=== PATIENT | female | born 1985 | race Hispanic/Latino ===

== ENCOUNTER 2024-09-27 13:48 | Emergency (ER) | payer OTHER, SELFPAY ==
[2024-09-27 13:49] VITALS: BP 176/102
--- NOTE | 2024-09-27 14:18 | ED.GENMED ---
History of Present Illness
General
Chief Complaint: Chest Problem
Source: patient
Time Seen by Provider: 09/27/24 14:07
History of Present Illness
History of Present Illness:
39yoF with no significant past medical history presenting for evaluation of chest pain. She initially started with pain underneath her left breast yesterday evening. Pain radiates to the back. She describes the pain as a dull ache which becomes
sharp with inspiration. She denies any trauma or cough. She thinks she may have pulled a muscle but decided to go to urgent care. She had an EKG and chest x-ray while at urgent care which she was told were normal. She was told to go to the ED to
rule out a pulmonary embolism. Patient is currently on oral contraceptives. She denies any recent travel. No calf pain or leg swelling.
Phy Exam
General Physical Exam
General Presentation: well appearing and no apparent distress
General age: appears stated age
General Skin: warm and dry
General Habitus: normal
General Mental: alert
ENT Exam
ENT Exam: normocephalic
Cardiovascular Exam
Cardiovascular Exam: regular rate/rhythm
Pulmonary Exam
Pulmonary Exam: lungs clear, no respiratory distress, chest non tender, no crackles and no wheezing
Gastrointestinal Exam
Gastrointestinal Exam: non tender, soft and non distended
Yancy Coma Scale
Eye Opening: Spontaneous
Verbal Response: Oriented
Motor Response: Obeys Commands
GCS Total Score: 15
Skin Exam
Skin Exam: normal color and warm/dry
Psychiatric Exam
Psychiatric Exam: normal mood/affect
Course
Orders/Labs/Results
Orders:
Orders
09/27/24 13:54
Electrocardiogram (*1) Urgent
Reason for Study: Chest Pain
EKG- Treatment ONCE
09/27/24 14:18
Test Result ONCE
09/27/24 14:31
Basic Metabolic Panel Urgent
Complete Blood Count/With Diff Urgent
D-Dimer Urgent
Troponin I Urgent
09/27/24 14:56
Test Result ONCE
09/27/24 15:05
HCG, Urine Qualitative Screen Urgent
Date Specimen was Collected: 09/27/24
Time Specimen was Collected: 14:56
Abnormal Lab Results
09/27/24
14:31
MCH 32.5 H pg
(27.0-31.0)
09/27/24 14:31
09/27/24 14:31
Vital Signs
Initial and Last Documented VS:
Initial Vital Signs
Temp Pulse Resp BP Pulse Ox
98.4 F 63 18 176/102 98
09/27/24 13:49 09/27/24 13:49 09/27/24 13:49 09/27/24 13:49 09/27/24 13:49
Last Documented Vital Signs
Temp Pulse Resp BP Pulse Ox
98.4 F 59 15 157/94 100
09/27/24 13:49 09/27/24 15:15 09/27/24 15:16 09/27/24 14:37 09/27/24 15:15
MDM/Problems Addressed
Differential Diagnosis Includes:
39yoF here with pleuritic L sided chest pain x 1 day. Radiates to back. Sent here by urgent care to r/o PE. Oxygen saturation 98% in triage and HR in the 60s. She is well appearing in no distress. Exam is reassuring. Lungs CTA and there is no
reproducible tenderness on exam. Differential diagnosis includes but is not limited to: Pneumonia, costochondritis, pleurisy, pneumothorax, PE
Initial ED plan: Check cardiac labs, D-dimer, and EKG. Patient arrives with a disc with her x-ray images from urgent care. Chest x-ray able to be removed which appears normal per my interpretation.
*EKG
Interpreted by ED Provider?: Yes
EKG Intrepretation Date: 09/27/24
Heart Rate: 59
Rate: bradycardiac
Rhythm: sinus
Yarnell: normal axis
Interval: normal interval
QRS Pattern: normal QRS
Ischemia: no ischemia
*Critical Care Note
Total Time (30-74mins, 75-104mins- exclusive of procedures): Not Applicable
Update Note
Update Note:
EKG shows sinus bradycardia without ischemic changes. Troponin within normal limits. D-dimer normal making PE very unlikely. Remainder of labs overall unremarkable. She is stable for discharge. Unclear etiology of symptoms. Consider
musculoskeletal versus pleurisy. Supportive care discussed. She was advised to follow-up with her PCP. ED return precautions discussed. She expressed understanding and is agreeable to plan. She was discharged in stable condition.
ED Attending Note
-
Portions of this chart may have been created with voice recognition software.� Occasional wrong word or��sound alike� substitutions may have occurred due to the inherent limitations of voice recognition software.
Discharge Plan
Departure
Patient Disposition: Home (Routine Discharge)
Date of Disposition: 09/27/24
Time of Disposition: 15:22
Patient with high blood pressure during this ER visit?: Yes
Discharge Problem:
Pleuritic chest pain
Instructions: Chest Pain PCP Follow Up
Referrals:
Regis Enciso MD [Family Provider] -
Activity Restrictions/Additional Instructions:
Apply heat to affected area. Take Tylenol and ibuprofen as needed.
Please follow-up with your family doctor. Return to the ER with any new or worsening symptoms.
Interventions
Interventions:
*Risk Screen - Suicide Last Done: 09/27/24 13:49
*General Assessment Last Done: 09/27/24 13:49
*Neglect/Abuse Screening Last Done: 09/27/24 13:49
ED- Fall Risk Assessment Last Done: 09/27/24 14:40
*ED COVID-19 Vaccine History Last Done: 09/27/24 14:40
*Nursing Disposition Last Done: 09/27/24 15:27
ED- Cardiac Assessment Last Done: 09/27/24 14:40
ED- Pulmonary Assessment Last Done: 09/27/24 14:40
Discharge Date and Time
Discharge Date/Time: 09/27/24 15:28
Print Language: WOLOF
[2024-09-27 14:37] VITALS: BP 157/94
[2024-09-27 14:38] LABS: % Basophils 0.7 % (0-2); % Eosinophils 1.6 % (0-6); % Immature Granulocytes 0.1 % (0-0.5); % Lymphocytes 30.4 % (20.5-51.1); % Monocytes 4.9 % (1.7-9.3); % Neutrophils 62.3 % (42.2-75.2); Absolute Basophils 0.1 10^3/uL (0-0.2); Absolute Eosinophils 0.1 10^3/uL (0-0.7); Absolute Lymphocytes 2.6 10^3/uL (1.2-3.4); Absolute Monocytes 0.4 10^3/uL (0.1-0.6); Absolute Neutrophils 5.3 10^3/uL (1.4-6.5); Hematocrit 42.1 % (37.0-47.0); Hemoglobin 14.8 g/dL (12.0-16.0); Mean Corp Hgb Conc. 35.2 g/dL (33.0-37.0); Mean Corpuscular Hgb 32.5 pg (27.0-31.0); Mean Corpuscular Volume 92.3 fL (81.0-99.0); Mean Platelet Volume 8.9 fL (7.4-10.4); Nucleated Red Blood Cells % 0 %; Platelet Count 289 10^3/uL (130-400); Red Blood Cell Count 4.56 10^6/uL (4.20-5.40); Red Cell Dist. Width 11.8 % (11.5-14.5); White Blood Cell Count 8.6 10^3/uL (4.8-10.8)
[2024-09-27 14:57] LABS: D-Dimer < 0.27 ug/mlFEU (0.00-0.50)
[2024-09-27 15:03] LABS: Troponin I < 0.012 ng/ml
[2024-09-27 15:13] LABS: Blood Urea Nitrogen 13 mg/dl (7-17); Calcium 9.6 mg/dl (8.4-10.2); Carbon Dioxide 26 mmol/L (22-30); Chloride 102 mmol/L (98-107); Glucose 85 mg/dl (70-99); Sodium 139 mmol/L (135-145); eGFR > 60.00
[2024-09-27 15:14] LABS: HCG, Urine Qualitative Screen Negative
== END 2024-09-27 15:28 | disposition home or self-care (01) ==
LOC: EMR 13:48
PROVIDERS: Physician Assistant; EMERGENCY PHYSICIAN Student in an Organized Health Care Education/Training Program; FAMILY PHYSICIAN Family Medicine
DX: R07.81 Pleurodynia (principal); R03.0 Elevated blood-pressure reading, without diagnosis of hypertension; Z88.1 Allergy status to other antibiotic agents
CPT/HCPCS: 99283; 80048; 81025; 84484; 85025; 85379; 93005